=== PATIENT | female | born 1950 | race Caucasian/White ===

== ENCOUNTER → 2017-01-08 | Outpatient (CLI) | payer MEDICARE ==
[2017-01-08 08:12] LABS: EKG EKG PERFORMED
[2017-01-08 08:30] LABS: Basophils % (A) 1 %; CH 30.6; CHCM 32.6; Eosinophils # (A) 0.2 k/uL (0-0.7); Eosinophils % (A) 4 %; HCT 41.7 % (34.0-46.0); HDW 2.05; HGB 13.9 gm/dL (11.4-16.0); Luc % (Auto) 2; Lymphocytes # (A) 1.1 k/uL (1.0-4.8); Lymphocytes % (A) 19 %; MCH 31.4 pg (25.0-35.0); MCHC 33.4 g/dL (31.0-37.0); MCV 94.1 fL (80.0-100.0); Monocytes # (A) 0.4 k/uL (0-1.0); Monocytes % (A) 7 %; Neutrophils # (A) 3.9 k/uL (1.3-7.7); Neutrophils % (A) 69 %; RBC 4.43 m/uL (3.80-5.40); RDW 13.4 % (11.5-15.5); WBC 5.7 k/uL (3.8-10.6); WBC (Perox) 5.64
[2017-01-08 08:44] LABS: Anion Gap 10 mmol/L; Blood Urea Nitrogen 14 mg/dL (7-17); Carbon Dioxide 24 mmol/L (22-30); Chloride 106 mmol/L (98-107); Non-African American GFR(MDRD) >60 (>60 ml/min/1.73 sqM); Potassium 4.5 mmol/L (3.5-5.1); Sodium 140 mmol/L (137-145)
== END | disposition home or self-care (01) ==
LOC: LABWHC1 07:46
PROVIDERS: ATTEND Obstetrics & Gynecology
DX: Z01.810 Encounter for preprocedural cardiovascular examination (principal); I10 Essential (primary) hypertension; N81.4 Uterovaginal prolapse, unspecified; Z01.812 Encounter for preprocedural laboratory examination
CPT/HCPCS: 80051; 82565; 84520; 85025; 86850; 86870; 86880; 86900; 86901; 87086; 93005

== ENCOUNTER 2017-01-16 06:27 | Day surgery (SDC) | payer MEDICARE ==
[2017-01-08 11:41] VITALS: BMI 34.3
--- NOTE | 2017-01-15 13:00 | HP ---
This is a 66-year-old white female, 3, para 3, 0, 0, [address] Brannon for evaluation regarding an increasing perineal bulge. The patient states she has to splint the perineal body to thoroughly empty the bowels and empty the bladder. She is menopausal, not taking any hormone replacement therapy. She denies any postmenopausal bleeding. She states that this bulge has been present for many years, but has increased in size specifically over the past 6-12 months. After consultation, she is electing to proceed with vaginal hysterectomy and anterior repair. The patient, in addition, has urinary incontinence, I suspect an urge component but do believe that there is a stress component as well. REVIEW OF SYSTEMS: Otherwise negative. PAST MEDICAL HISTORY: Significant for hypertension and thyroid disease, followed by Dr. Brannon. PAST SURGICAL HISTORY: Tubal ligation in 1972, cholecystectomy 2005. CURRENT MEDICATIONS: Atorvastatin 20 mg pills once daily, Betimol 0.5% ophthalmologic drops into each eye twice daily, vitamin D12 orally daily, baby aspirin daily, fish oil 300 mg capsules orally daily, glucosamine chondroitin once daily, levothyroxine 75 mcg once daily, lisinopril 5 mg once daily, vitamin D capsules daily, multivitamin daily. ALLERGIES: TICLID to which she reports severe hives. FAMILY HISTORY: Significant for hypertension, thyroid disease, heart disease, diabetes and arthritis. REPRODUCTIVE HISTORY: Three normal spontaneous vaginal deliveries, one with a shoulder dystocia, all children alive and well. SOCIAL HISTORY: The patient drinks 2-3 cups of caffeinated coffee daily. She denies alcohol or drug use. She is a former smoker, having quit in 2005. 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 On exam this is a pleasant white female, 4 feet, 11 inches, 169 pounds, BMI 33.9 , blood pressure 120/80, vital signs otherwise stable and patient is afebrile. HEENT: Reveals no thyromegaly, no cervical lymphadenopathy, good range of motion. CARDIAC: Reveals regular rate and rhythm with no murmur, click or rub. CHEST: Clear to auscultation in all roland anteriorly and posteriorly. BREASTS: Bilaterally symmetric to inspection with no skin dimpling, nipple discharge, axillary adenopathy or discernible lesions or masses. GASTROINTESTINAL: Reveals no organosplenomegaly, no pain to deep palpation, no CVA tenderness. EXTREMITIES: Reveal no edema. There are good peripheral pulses and good range of motion. GENITOURINARY: There is a grade 4 cystocele noted, a grade 3 uterine prolapse as well. No obvious rectocele is noted. Adnexa are negative, smooth, small, nontender and mobile. RECTAL: Reveals good sphincter tone, no hemorrhoids, no rectal masses, FIT negative stool sample. IMPRESSION: Increasing grade 4 cystocele and grade 3 uterine prolapse, patient wishing cervical repair. PLAN: I discussed with the patient the option of pessary which she is declining. We have discussed the risks of surgery to include but not be exclusive of bleeding, infection, perforation or damage to the bladder, bowels, ureters or in deed any pelvic or abdominal organs. We have reviewed the risks of anesthesia to include aspiration, nerve damage or even . Second opinion is offered and declined. The ACOG pamphlet has been given to the patient which she has reviewed. All questions answered. TIRSO
[~2017-01-16 06:27] MED LIST: DEXAMETHASONE SOD PHOSPHATE 10 MG/ML 1 ML VIAL IV ONE; HYDROmorphone 1 MG/ML 1 ML SYRINGE IVP PRN; MIDAZOLAM 2 MG/2 ML VIAL IV PRN; ONDANSETRON 4 MG/2 ML VIAL IVP ONE; ceFAZolin 2 GM in SODIUM CHLORIDE 0.9% 100 ML IVPB ONE
[2017-01-16] MEDS: LACTATED RINGERS 1,000 ML IV SCH ×3 (07:09→22:03)
[2017-01-16] MEDS ORDERED: VASOPRESSIN 20 UNIT/ML 1 ML VIAL SQ ONE (08:09)
[2017-01-16] MEDS ORDERED: GLYCOPYRROLATE 0.2 MG/ML 2 ML VIAL ONE (08:12)
[2017-01-16] MEDS ORDERED: PHENYLEPHRINE-0.9% NACL SYG 1 MG/10 ML SYRINGE ONE (08:12)
[2017-01-16] MEDS ORDERED: MIDAZOLAM 2 MG/2 ML VIAL ONE (08:12)
[2017-01-16] MEDS ORDERED: PROPOFOL 10 MG/ML 20 ML VIAL IV ONE (08:12)
[2017-01-16] MEDS ORDERED: NALBUPHINE 10 MG/ML AMPUL IV PRN (08:26)
[2017-01-16] MEDS ORDERED: MORPHINE SULFATE 4 MG/ML SYRINGE IVP PRN (08:26)
[2017-01-16] MEDS ORDERED: KETOROLAC 30 MG/ML 1 ML VIAL IVP PRN (08:26)
[2017-01-16] MEDS ORDERED: diphenhydrAMINE 50 MG/ML 1 ML VIAL IVP PRN ×2 (08:26→09:13)
[2017-01-16] MEDS ORDERED: NALOXONE 0.4 MG/ML 1 ML VIAL IV PRN (08:26)
[2017-01-16] MEDS ORDERED: ONDANSETRON 4 MG/2 ML VIAL IVP PRN ×2 (08:26→09:13)
[2017-01-16] MEDS ORDERED: BACITRACIN 500 UNIT/GM OINT 28.4 GM TUBE TOPICAL ONE (08:47)
[2017-01-16] MEDS ORDERED: ZOLPIDEM 5 MG TAB PO PRN (09:13)
[2017-01-16] MEDS ORDERED: SIMETHICONE 80 MG CHEWABLE PO PRN (09:13)
[2017-01-16] MEDS ORDERED: Acetaminophen-Codeine 300-30mg TAB PO PRN (09:13)
--- NOTE | 2017-01-16 09:13 | P.OP ---
Date of Procedure: 01/16/17 Preoperative Diagnosis: Grade 4 cystocele, grade 3 uterine prolapse. Postoperative Diagnosis: Normal-appearing ovaries, small grade 1-2 rectocele Procedure(s) Performed: Vaginal hysterectomy, anterior colporrhaphy Implants: Anesthesia: MICKA Surgeon: Shaina Walker [employer] Specialist #1: Tarun Ansari Estimated Blood Loss (ml): 25 IV fluids (ml): 600 Urine output (ml): 250 Pathology: other (Cervix and uterus) Condition: stable Disposition: PACU Indications for Procedure: Operative Findings: Normal-appearing atrophic ovaries bilaterally Description of Procedure: Patient is brought to the operating suite and a spinal with Duramorph is placed. She is positioned in the dorsal lithotomy position. Antibiotics given. The appropriate timeout is performed to assure proper patient and procedural identification. The cervix, vagina, perineum and lower abdominal areas are all prepped and draped in usual sterile fashion. Weighted speculum was placed into the vagina. The latter strain for 250 mL of clear yellow urine. Anterior lip of the cervix is grasped with a double-tooth tenaculum. Cervix is injected circumferentially with dilute Pitressin solution. A [place] blade scalpel is used and an incision is made circumferentially with a V positioning posteriorly. A sponge rolled finger is used to sweep the mucosa away from the underlying fascial plane. Peritoneum is entered at 6:00, suture tied with 2-0 Vicryl held with a hemostat. The large billed speculum is then placed into the peritoneal cavity. The right uterosacral ligament complex is identified, clamped and held with a 0 Vicryl suture laterally. The same procedure is carried out contralaterally. At all times the mucosa is swept well from the operative field to avoid bladder and/or ureteral injury. Uterine vasculature is skeletonized, clamped cut and suture ligated. 2 additional pedicles are taken superior to the vessels bilaterally. The peritoneum was then entered at 12:00 with Metzenbaum scissors. Edgar clamps are used over the final pedicles and the cervix and uterus are removed and sent to pathology. Final pedicles are suture tied with 0 Vicryl, flashed, retied for excellent hemostasis. At this time a sponge stick is used and bilateral ovaries are inspected, they are noted to be atrophic , certainly within normal limits and therefore left in situ per the patient's wishes. The speculum is changed to the shallow billed speculum and the 2-0 Vicryl suture previously placed is brought around in a pursestring fashion to close the peritoneal cavity. 0 Vicryl suture is used to bring the vaginal mucosal edges together inferiorly. Allis clamps are used superiorly on the mucosal edges. The anterior vaginal mucosa is then injected with the same dilute Pitressin solution. Metzenbaum scissors are used to undermine the mucosa and it is opened and held laterally and a fanlike fashion with Allis clamps. Deal catheter is now placed in the urine is noted to be clear. 2-0 Vicryl sutures used in an interrupted fashion to bring the fascial edges together in the midline, thereby completely reducing the cystocele. Metzenbaum scissors are used to trim the redundant mucosa. 2-0 Vicryl sutures used in a running locking fashion to close the mucosa thereby completely obliterating the cystocele. Again urine is clear in the Deal tube. The vagina is packed with one-inch iodophor gauze with basic tracing. All sponge needle and enhancement counts are correct at the end of this procedure. Patient is brought back to recovery room in very good condition with stable vital signs including a blood pressure 100/64, pulse 66, 98% O2 saturation.
[2017-01-16] MEDS: KETOROLAC 30 MG/ML 1 ML VIAL IVP PRN (11:40)
[2017-01-16] MEDS: METOCLOPRAMIDE 5 MG/ML 2 ML VIAL IVP PRN ×2 (12:30→19:47)
[2017-01-17 04:58] VITALS: RESP 20
[2017-01-17] MEDS ORDERED: LEVOTHYROXINE 75 MCG TAB PO SCH (07:09)
--- NOTE | 2017-01-17 08:07 | P.DS ---
Providers Date of admission: 01/16/17 Expected date of discharge: 01/17/17 Attending physician: Shaina Walker Primary care physician: [facility] Hospital Course: This is a 66-year-old white female who presented with an increasing perineal bulge and pressure. After examination, she was noted to have a grade 4 cystocele and grade 3 uterine prolapse. She elected for surgical repair. Please see my dictated history and physical for details. Patient was admitted and underwent vaginal hysterectomy and anterior colporrhaphy under my care on 01/16/2017. She did well intraoperatively. Ovaries appeared normal and therefore were left in situ per her wishes. She received a spinal with Duramorph and has had good pain control. Please see my dictated operative note for details. This morning the patient is doing well. Deal catheter has been discontinued and vaginal pack is removed. She is tolerating clear liquids. She has no pain. There is no vaginal bleeding. There is no CVA tenderness. Extremities are negative. Chest is clear. Diet would be advanced to regular at lunch time. We will check a voided and post void residuals. If residuals are less than 100 patient will likely go home later this afternoon. She is judged to be in good condition for discharge home. Patient is reminded no intercourse, tampons or douching. She will use ibuprofen products [id number] as needed for pain, 200 mg pills, 3 every 6 hours as needed. I have asked her to call with any fevers shakes or chills, foul smelling or bloody vaginal drainage, with any pain not alleviated by ibuprofen, or indeed with any concerns. She is reminded no driving for 2 weeks , no heavy lifting, and certainly nothing per vagina. She will follow-up with me in the office in 2 weeks. Patient Condition at Discharge: Good Plan - Discharge Summary New Discharge Prescriptions: No Action Cyanocobalamin [Vitamin B-12] 500 mcg PO DAILY Cetirizine HCl [Zyrtec] 10 mg PO DAILY PRN PRN Reason: allergies Atorvastatin [Lipitor] 20 mg PO HS Aspirin 81 mg PO DAILY Timolol 0.5% Ophth Soln [Timoptic 0.5% Ophth Soln] 1 drop BOTH EYES BID Lisinopril [Zestril] 5 mg PO HS Levothyroxine Sodium [Synthroid] 75 mcg PO DAILY Glucosam/Allan-Msm1/C/Smith/Bosw [Glucosamine-Chondroitin Tablet] 1 each PO DAILY Cholecalciferol (Vitamin D3) [Vitamin D3] 2,000 - 4,000 unit PO DAILY Discharge Medication List Aspirin 81 mg PO DAILY 01/08/17 [History] Atorvastatin [Lipitor] 20 mg PO HS 01/08/17 [History] Cetirizine HCl [Zyrtec] 10 mg PO DAILY PRN 01/08/17 [History] Cholecalciferol (Vitamin D3) [Vitamin D3] 2,000 - 4,000 unit PO DAILY 01/08/17 [ History] Cyanocobalamin [Vitamin B-12] 500 mcg PO DAILY 01/08/17 [History] Glucosam/Allan-Msm1/C/Smith/Bosw [Glucosamine-Chondroitin Tablet] 1 each PO DAILY 01/08/17 [History] Levothyroxine Sodium [Synthroid] 75 mcg PO DAILY 01/08/17 [History] Lisinopril [Zestril] 5 mg PO HS 01/08/17 [History] Timolol 0.5% Ophth Soln [Timoptic 0.5% Ophth Soln] 1 drop BOTH EYES BID [History] Follow up Appointment(s)/Referral(s): Shaina Walker MD [STAFF PHYSICIAN] - 2 Weeks Discharge Disposition: HOME SELF-CARE
[2017-01-17] MEDS: KETOROLAC 30 MG/ML 1 ML VIAL IVP PRN (09:48)
[2017-01-17 09:52] VITALS: BP 106/70; PULSE 82; TEMP 97.4
--- NOTE | 2017-01-17 10:25 | P.PN ---
Progress Note - Text Postop day 1 from cystocele repair, with intrathecal morphine given for postop pain management. Patient is doing well. Pain is well controlled. On visual analog scale 0/10 Mild itching present No nausea or vomiting reported. No Headache or weakness and numbness in the legs. No complications from Duramorph.
[2017-01-17] MEDS ORDERED: IBUPROFEN 600 MG TAB PO PRN (12:09)
[2017-01-18] MEDS ORDERED: LEVOTHYROXINE 75 MCG TAB PO SCH (06:30)
== END 2017-01-17 14:19 | disposition home or self-care (01) ==
LOC: OR 06:27 → 6PED 09:07 → OR 01-17 14:19
PROVIDERS: ATTEND Obstetrics & Gynecology
DX: N81.3 Complete uterovaginal prolapse (principal); N81.11 Cystocele, midline; N39.46 Mixed incontinence; N80.0 Endometriosis of uterus; I10 Essential (primary) hypertension; E78.5 Hyperlipidemia, unspecified; H40.9 Unspecified glaucoma; Z79.82 Long term (current) use of aspirin; Z82.49 Family history of ischemic heart disease and other diseases of the circulatory system; Z87.891 Personal history of nicotine dependence; Z88.8 Allergy status to other drugs, medicaments and biological substances; Z79.899 Other long term (current) drug therapy
CPT/HCPCS: 94760; 88307; 58260; 57240; J2250; J1100; J2765; J0690; J2405; J1885 ×2; J2370; J2704; 86850; 86870; 86880; 86900; 86901

== ENCOUNTER 2018-02-09 17:35 | Emergency (ER) | payer MEDICARE ==
[2018-02-09 17:50] VITALS: BP 125/83; PULSE 79; RESP 18; TEMP 97.8
--- NOTE | 2018-02-09 18:05 | ED ---
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 She states she has some redness around the stitch site stitches of his stay in for 3 full weeks per patient. She was some redness around the wound but she' s had no fevers chills sweats no increased localized temperature. She has been using ice on it daily. No overt drainage or fluctuance noted. No other complaints he states she hasn't working and had a dressing over it while working. MD Complaint: wound re-check - Related Data Home Medications Medication Instructions Recorded Confirmed Aspirin 81 mg PO DAILY 01/08/17 02/09/18 Atorvastatin [Lipitor] 20 mg PO HS 01/08/17 02/09/18 Cetirizine HCl [Zyrtec] 10 mg PO DAILY PRN 01/08/17 02/09/18 Cholecalciferol (Vitamin D3) 2,000 - 4,000 unit PO DAILY 01/08/17 02/09/18 [Vitamin D3] Cyanocobalamin [Vitamin B-12] 500 mcg PO DAILY 01/08/17 02/09/18 Glucosam/Allan-Msm1/C/Smith/Bosw 1 each PO DAILY 01/08/17 02/09/18 [Glucosamine-Chondroitin Tablet] Timolol 0.5% Ophth Soln [Timoptic 1 drop BOTH EYES BID 01/08/17 02/09/18 0.5% Ophth Soln] Levothyroxine Sodium [Synthroid] 100 mcg PO DAILY 02/09/18 02/09/18 Lisinopril [Zestril] 10 mg PO DAILY 02/09/18 02/09/18 Previous Rx's Medication Instructions Recorded Amoxic-Pot Clav 875-125Mg 1 tab PO Q12HR #20 tablet 02/09/18 [Augmentin 875-125] Allergies Allergy/AdvReac Type Severity Reaction Status Date / Time ticlopidine [From Ticlid] Allergy Rash/Hives Verified 02/09/18 17:50 Review of Systems ROS Statement: Those systems with pertinent positive or pertinent negative responses have been documented in the HPI. ROS Other: All systems not noted in ROS Statement are negative. Past Medical History Additional Past Medical History / Comment(s): [place] cell carcinoma. History of Any Multi-Drug Resistant Organisms: None Reported Past Surgical History: Hysterectomy Additional Past Surgical History / Comment(s): removal of carcinoma Past Psychological History: No Psychological Hx Reported Smoking Status: Never smoker Past Alcohol Use History: None Reported Past Drug Use History: None Reported General Exam - General Exam Comments Initial Comments: This is a well-developed well-nourished awake alert oriented 3 female Limitations: no limitations General appearance: alert, in no apparent distress Head exam: Present: atraumatic, normocephalic, normal inspection Eye exam: Present: normal appearance, PERRL, EOMI. Absent: scleral icterus, conjunctival injection, periorbital swelling Neck exam: Present: normal inspection, full ROM Extremities exam: Present: full ROM, normal capillary refill, other ( Examination the right upper extremity demonstrates an approximately 10 some a long surgical incision with sutures in place. No evidence of wound dehiscence there is some localized erythema at the stitched sites consistent with a stitch reaction no fluctuance no increased localized temperature no drainage. No sensorimotor vascular deficits. No epitrochlear lymphadenopathy. No axillary lymphadenopathy.). Absent: tenderness Neurological exam: Present: alert, oriented X3, CN II-XII intact Psychiatric exam: Present: normal affect, normal mood Skin exam: Present: warm, dry, other (As noted above) Course Vital Signs 02/09/18 17:47 Temperature 97.8 F Pulse Rate 79 Respiratory 18 Rate Blood Pressure 125/83 O2 Sat by Pulse 99 Oximetry Medical Decision Making - Medical Decision Making At this time there is no evidence of secondary wound infection. There is localized erythema near the site which is more consistent with tissue reaction to the sutures. Patient will be discharged she is instructed to elevate her right upper extremity at this time I do not feel further cold compress will be beneficial. Patient will be given a prescription to be used if she should've started developing fevers chills sweats increased localized redness and increased localized tissue temperature more consistent with infection. Patient is in agreement with this Disposition Clinical Impression: Encounter for wound re-check Disposition: HOME SELF-CARE Condition: Good Instructions: Care For Your Stitches (ED) Prescriptions: Amoxic-Pot Clav 875-125Mg [Augmentin 875-125] 1 tab PO Q12HR #20 tablet Is patient prescribed a controlled substance at d/c from ED?: No Referrals: Yaya Brannon MD [Primary Care Provider] - 1-2 days
== END 2018-02-09 18:20 | disposition home or self-care (01) ==
LOC: EC 17:35
DX: Z48.01 Encounter for change or removal of surgical wound dressing (principal); M79.631 Pain in right forearm; Z79.82 Long term (current) use of aspirin; Z79.899 Other long term (current) drug therapy; Z85.821 Personal history of Merkel cell carcinoma; Z98.890 Other specified postprocedural states
CPT/HCPCS: 99283

== ENCOUNTER → 2018-04-24 | Outpatient (CLI) | payer MEDICARE ==
--- NOTE | 2018-04-25 10:21 | MM ---
Reason for exam: screening (asymptomatic). Last mammogram was performed 4 years and 5 months ago. History: Patient is postmenopausal and history of other cancer. Physical Findings: A clinical breast exam by your physician is recommended on an annual basis and results should be correlated with mammographic findings. MG 3D Screening Mammo W/Cad Bilateral CC and MLO view(s) were taken. Prior study comparison: November 18, 2013, mammogram. November 05, 2013, mammogram. The breast tissue is heterogeneously dense. This may lower the sensitivity of mammography. There are benign appearing vascular calcifications bilaterally. There is chronic nodularity bilaterally at axilla. There is no discrete abnormality. ASSESSMENT: Benign, BI-RAD 2 RECOMMENDATION: Routine screening mammogram of both breasts in 1 year.
== END | disposition home or self-care (01) ==
LOC: RADMAMWWP 10:56
PROVIDERS: ATTEND Family Medicine
DX: Z12.31 Encounter for screening mammogram for malignant neoplasm of breast (principal)
CPT/HCPCS: 77063; 77067

== ENCOUNTER → 2019-12-24 | Outpatient (CLI) | payer MEDICARE ==
[2019-12-24 15:36] LABS: African American GFR (CKD) >90 (>60 ml/min/1.73 sqM); Blood Urea Nitrogen 17 mg/dL (7-17); Non-African American GFR(CKD) >90 (>60 ml/min/1.73 sqM)
--- NOTE | 2019-12-24 16:58 | CT ---
EXAMINATION TYPE: CT abdomen pelvis w con DATE OF EXAM: 12/24/2019 COMPARISON: None HISTORY: Abdominal pain. CT DLP: 1011.2 mGycm Automated exposure control for dose reduction was used. CONTRAST: Performed with IV Contrast, patient injected with 100 mL of Isovue M300. Lung bases are clear. There is no pleural effusion. Heart size is normal. There is no pericardial eff usion. There is small hiatal hernia. The remainder of the stomach appears normal. There are clips fro m cholecystectomy. Liver shows no focal defect. Bile ducts are not dilated. Spleen is intact. There i s no evidence of pancreatic mass. There is no adrenal mass. Kidneys show satisfactory contrast opacification. There is no hydronephrosi s. There is 4 mm calculus in the lateral left kidney. The ureters are not dilated. There is no retrop eritoneal adenopathy. Bladder distends smoothly. There is no inguinal hernia. There is wall thickening and fat stranding around the mid sigmoid colon. There are numerous sigmoid d iverticula. There are numerous diverticula in the descending colon. Appendix is posterior and appears normal. There is no evidence of a bowel obstruction. There is no free air. There is no ascites. Lumbar verteb ra have normal alignment. There is slight depression of the superior endplate of L5 with a Schmorl no de. There is anterior wedging of 35% of the T12 vertebra. Fractures probably old. IMPRESSION: There is inflammatory changes in the mid sigmoid colon with wall thickening and mild fat stranding co nsistent with acute diverticulitis. No drainable fluid collection. Nonobstructing left renal calculus. Extensive colonic diverticulosis. Normal appendix.
== END | disposition home or self-care (01) ==
LOC: RADCTMAIN 14:35
PROVIDERS: ATTEND Family Medicine
DX: K63.89 Other specified diseases of intestine (principal); K51.40 Inflammatory polyps of colon without complications; N20.0 Calculus of kidney; K57.30 Diverticulosis of large intestine without perforation or abscess without bleeding
CPT/HCPCS: 82565; 84520; 74177; 36415; Q9967 ×2

== ENCOUNTER → 2021-03-18 | Outpatient (CLI) | payer MEDICARE ==
--- NOTE | 2021-03-22 10:12 | MM ---
Reason for exam: screening (asymptomatic). Last mammogram was performed 2 years and 11 months ago. History: Patient is postmenopausal and history of other cancer. Physical Findings: A clinical breast exam by your physician is recommended on an annual basis and results should be correlated with mammographic findings. MG 3D Screening Mammo W/Cad Bilateral CC and MLO view(s) were taken. Prior study comparison: April 24, 2018, bilateral MG 3d screening mammo w/cad. November 18, 2013, mammogram. November 05, 2013, mammogram. The breast tissue is heterogeneously dense. This may lower the sensitivity of mammography. No significant changes when compared with prior studies. ASSESSMENT: Benign, BI-RAD 2 RECOMMENDATION: Routine screening mammogram of both breasts in 1 year.
== END | disposition home or self-care (01) ==
LOC: RADMAMWWP 13:32
PROVIDERS: ATTEND Family Medicine
DX: Z12.31 Encounter for screening mammogram for malignant neoplasm of breast (principal); Z85.89 Personal history of malignant neoplasm of other organs and systems
CPT/HCPCS: 77063; 77067

== ENCOUNTER 2021-05-12 08:53 | Emergency (ER) | payer MEDICARE ==
[2021-05-12 09:16] VITALS: TEMP 98.8
[2021-05-12] MEDS ORDERED: SODIUM CHLORIDE 0.9% 50 ML IVPB ONE (09:45)
[2021-05-12] MEDS ORDERED: CASIRIVIMAB (REGN10933) (EUA) 600 MG, IMDEVIMAB (REGN10987) (EUA) 600 MG in SODIUM CHLO... IVPB ONE (09:45)
--- NOTE | 2021-05-12 10:15 | ED ---
General Adult HPI - General Chief complaint: Upper Respiratory Infection Stated complaint: covid+, wants infusion Time Seen by Provider: 05/12/21 08:58 Source: patient, RN notes reviewed Mode of arrival: ambulatory Limitations: no limitations - History of Present Illness Initial comments: 70-year-old female presents emergency Department with chief complaint of COVID- 19 positive. Patient tested positive has results in hand yesterday. Patient states that she's had sinus congestion minimal cough no shortness breath no chest pain no fevers chills no significant body aches no other complaints. - Related Data Home Medications Medication Instructions Recorded Confirmed Aspirin 81 mg PO HS 01/08/17 02/09/18 Atorvastatin [Lipitor] 20 mg PO HS 01/08/17 02/09/18 Cetirizine HCl [Zyrtec] 10 mg PO DAILY PRN 01/08/17 02/09/18 Cholecalciferol (Vitamin D3) 2,000 - 4,000 unit PO DAILY 01/08/17 02/09/18 [Vitamin D3] Cyanocobalamin [Vitamin B-12] 500 mcg PO DAILY 01/08/17 02/09/18 Glucosam/Allan-Msm1/C/Smith/Bosw 1 tab PO DAILY 01/08/17 02/09/18 [Glucosamine-Chondroitin Tablet] Timolol 0.5% Ophth Soln [Timoptic 1 drop BOTH EYES BID 01/08/17 02/09/18 0.5% Ophth Soln] Levothyroxine Sodium [Synthroid] 100 mcg PO DAILY 02/09/18 02/09/18 lisinopriL [Zestril] 10 mg PO DAILY 02/09/18 02/09/18 Previous Rx's Medication Instructions Recorded Amoxic-Pot Clav 875-125Mg 1 tab PO Q12HR #20 tablet 02/09/18 [Augmentin 875-125] Allergies Allergy/AdvReac Type Severity Reaction Status Date / Time ticlopidine [From Ticlid] Allergy Rash/Hives Verified 05/12/21 09:16 Review of Systems ROS Statement: Those systems with pertinent positive or pertinent negative responses have been documented in the HPI. ROS Other: All systems not noted in ROS Statement are negative. Past Medical History Additional Past Medical History / Comment(s): [place] cell carcinoma. History of Any Multi-Drug Resistant Organisms: None Reported Past Surgical History: Hysterectomy Additional Past Surgical History / Comment(s): removal of carcinoma Past Psychological History: No Psychological Hx Reported Smoking Status: Former smoker Past Alcohol Use History: None Reported Past Drug Use History: None Reported General Exam Limitations: no limitations General appearance: alert, in no apparent distress Head exam: Present: atraumatic, normocephalic, normal inspection Eye exam: Present: normal appearance, PERRL, EOMI. Absent: scleral icterus, conjunctival injection, periorbital swelling ENT exam: Present: normal exam, normal oropharynx, mucous membranes moist Neck exam: Present: normal inspection, full ROM. Absent: tenderness, meningismus, lymphadenopathy Respiratory exam: Present: normal lung sounds bilaterally. Absent: respiratory distress, wheezes, rales, rhonchi, stridor Cardiovascular Exam: Present: regular rate, normal rhythm, normal heart sounds. Absent: systolic murmur, diastolic murmur, rubs, gallop, clicks Course Vital Signs 05/12/21 09:13 Temperature 98.8 F Pulse Rate 96 Respiratory 22 Rate Blood Pressure 158/111 O2 Sat by Pulse 94 L Oximetry Medical Decision Making - Medical Decision Making Patient's: Positive did receive monoclonal antibodies be discharged stable condition. Disposition Clinical Impression: COVID-19 Disposition: HOME SELF-CARE Condition: Stable Instructions (If sedation given, give patient instructions): Coronavirus Disease 2019 (COVID-19) Additional Instructions: Please return to the Emergency Department if symptoms worsen or any other concerns. Is patient prescribed a controlled substance at d/c from ED?: No Referrals: Yaya Brannon MD [Primary Care Provider] - 1-2 days Time of Disposition: 10:14
[2021-05-12 10:39] VITALS: RESP 16
[2021-05-12 10:47] VITALS: BP 150/82; PULSE 88
== END 2021-05-12 11:09 | disposition home or self-care (01) ==
LOC: EC 08:53
DX: U07.1 COVID-19 (principal); Z87.891 Personal history of nicotine dependence; Z79.890 Hormone replacement therapy; Z79.82 Long term (current) use of aspirin; Z79.899 Other long term (current) drug therapy
CPT/HCPCS: 99283; Q0243

== ENCOUNTER → 2021-08-15 | Outpatient (CLI) | payer MEDICARE ==
[2021-08-15 18:30] LABS: ALT 24 U/L (8-44); AST 26 U/L (13-35); African American GFR (CKD) 106.3 (60.0-200.0); Albumin 4.7 g/dL (3.8-4.9); Albumin/Globulin Ratio 1.47 (1.60-3.17); Alkaline Phosphatase 93 U/L (41-126); Blood Urea Nitrogen 13.2 mg/dL (9.0-27.0); Calcium 9.6 mg/dL (8.7-10.3); Carbon Dioxide 24.3 mmol/L (20.0-27.5); Chloride 102 mmol/L (96-109); Chol/HDL Ratio 2.51 Ratio; Globulin 3.2 g/dL (1.6-3.3); Glucose 86 mg/dL (70-110); LDL Cholesterol,Calculated 65.8 mg/dL (0.0-131.0); Non-African American GFR(CKD) 91.7 (60.0-200.0); Potassium 4.4 mmol/L (3.5-5.5); Sodium 137 mmol/L (135-145); Total Protein 7.9 g/dL (6.2-8.2)
== END | disposition home or self-care (01) ==
LOC: LABWHC1 09:41
PROVIDERS: ATTEND Internal Medicine Interventional Cardiology
DX: E78.2 Mixed hyperlipidemia (principal)
CPT/HCPCS: 36415; 80053; 80061

== ENCOUNTER → 2021-08-25 | Outpatient (CLI) | payer MEDICARE ==
--- NOTE | 2021-08-25 13:27 | US ---
EXAMINATION TYPE: US venous doppler duplex LE LT DATE OF EXAM: 08/25/2021 1:03 PM COMPARISON: NONE CLINICAL HISTORY: R22.42 SWELLING, MASS AND LUMPLT LOWER EXT. SIDE PERFORMED: Left TECHNIQUE: The lower extremity deep venous system is examined utilizing real time linear array sonog kathleen with graded compression, doppler sonography and color-flow sonography. VESSELS IMAGED: Common Femoral Vein Deep Femoral Vein Greater Saphenous Vein * Femoral Vein Popliteal Vein Small Saphenous Vein * Proximal Calf Veins (* superficial vessels) Left Leg: Negative for DVT. At patient's area of concern at lateral left ankle tissue swelling; US f indings showed increased soft tissue thickness compared to right ankle. IMPRESSION: 1. No diagnostic evidence of DVT. 2. Soft tissue thickening is nonspecific over the area of palpable abnormality. Correlate clinically. If warranted MRI could be obtained.
== END | disposition home or self-care (01) ==
LOC: RADUSWWP 12:39
PROVIDERS: ATTEND Family Medicine
DX: R22.42 Localized swelling, mass and lump, left lower limb (principal)

== ENCOUNTER → 2021-08-25 | Outpatient (CLI) | payer MEDICARE ==
--- NOTE | 2021-08-25 13:43 | XR ---
EXAMINATION TYPE: XR chest 2V DATE OF EXAM: 08/25/2021 COMPARISON: NONE HISTORY: R06.02, shortness of breath TECHNIQUE: Frontal and lateral views of the chest are obtained. FINDINGS: There is no focal air space opacity, pleural effusion, or pneumothorax seen. The cardiac silhouette size is within normal limits. There are prominent lung volumes with flattening the hemidia phragms suggesting underlying COPD present within the upper abdomen. Aorta is dense. The osseous str uctures are intact, bone mineralization is reduced. IMPRESSION: No acute cardiopulmonary process.
== END | disposition home or self-care (01) ==
LOC: RADXRMAIN 13:11
PROVIDERS: ATTEND Family Medicine
DX: R06.02 Shortness of breath (principal)
CPT/HCPCS: 71046

== ENCOUNTER 2021-10-08 20:36 | Emergency (ER) | payer MEDICARE ==
[2021-10-08 21:08] VITALS: RESP 18; TEMP 98
--- NOTE | 2021-10-08 21:44 | ED ---
Recheck HPI - General Chief Complaint: Recheck/Abnormal Lab/Rx Stated Complaint: May have ingested hand planning consultant Time Seen by Provider: 10/08/21 21:38 Source: patient, RN notes reviewed Mode of arrival: ambulatory Limitations: no limitations - History of Present Illness Initial Comments: This is a pleasant 71-year-old female who states she inadvertently got some hand planning consultant on the lid of her cup from [employer]. Patient then accidentally got some of the hand planning consultant in her mouth. Patient was very concerned about this. Patient comes to the ER stating that she immediately noticed that the beverage tasted different. Patient denies any shortness of breath. She denies any cough. Denies any fever or chills. Patient denies any other ingestions. She states this was purely accidental. Patient indicating this is a very small amount of hand planning consultant which she had just used on her hands prior to touching the cup. No headache, no fever or chills, no changes in vision or hearing, no sore throat or difficulty with speech, no neck pain, no chest pain or shortness of breath, no abdominal pain, no nausea or vomiting, no changes in urination or bowel movements, no numbness or tingling, no extremity pain, no skin rashes or lesions. - Related Data Home Medications Medication Instructions Recorded Confirmed Atorvastatin [Lipitor] 20 mg PO HS 01/08/17 05/12/21 Levothyroxine Sodium [Synthroid] 100 mcg PO DAILY 02/09/18 05/12/21 lisinopriL [Zestril] 10 mg PO DAILY 02/09/18 05/12/21 Dorzolamide-Timol 2.23%/0.68% 1 drop BOTH EYES BID 05/12/21 05/12/21 [Cosopt] Allergies Allergy/AdvReac Type Severity Reaction Status Date / Time ticlopidine [From Ticlid] Allergy Rash/Hives Verified 10/08/21 21:08 Review of Systems ROS Statement: Those systems with pertinent positive or pertinent negative responses have been documented in the HPI. ROS Other: All systems not noted in ROS Statement are negative. 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 History of Any Multi-Drug Resistant Organisms: None Reported Past Surgical History: Hysterectomy Additional Past Surgical History / Comment(s): removal of carcinoma Past Psychological History: No Psychological Hx Reported Smoking Status: Former smoker Past Alcohol Use History: None Reported Past Drug Use History: None Reported General Exam Limitations: no limitations General appearance: alert, in no apparent distress Head exam: Present: atraumatic, normocephalic, normal inspection Eye exam: Present: normal appearance, PERRL, EOMI. Absent: scleral icterus, conjunctival injection, periorbital swelling ENT exam: Present: normal exam, mucous membranes moist Neck exam: Present: normal inspection. Absent: tenderness, meningismus, lymphadenopathy Respiratory exam: Present: normal lung sounds bilaterally. Absent: respiratory distress, wheezes, rales, rhonchi, stridor Cardiovascular Exam: Present: regular rate, normal rhythm, normal heart sounds. Absent: systolic murmur, diastolic murmur, rubs, gallop, clicks GI/Abdominal exam: Present: soft, normal bowel sounds. Absent: distended, tenderness, guarding, rebound, rigid Extremities exam: Present: normal inspection, full ROM, normal capillary refill. Absent: tenderness, pedal edema, joint swelling, calf tenderness Back exam: Present: normal inspection Neurological exam: Present: alert, oriented X3, CN II-XII intact Psychiatric exam: Present: normal affect, normal mood Skin exam: Present: warm, dry, intact, normal color. Absent: rash Course Vital Signs 10/08/21 21:05 Temperature 98 F Pulse Rate 86 Respiratory 18 Rate Blood Pressure 160/106 O2 Sat by Pulse 97 Oximetry Medical Decision Making - Medical Decision Making Patient presented to the emergency department after possibly ingesting a tiny amount of hand planning consultant which was on the lid of a beverage cup after she had used it on her hands. Minimal elevation of her blood pressure. Patient appeared to be a bit anxious but healthy otherwise. No adventitious lung sounds. No vomiting. Patient was reassured and was much appreciated. Patient was told to return to the ER for any signs or symptoms worsen. Told to return immediately if any other problems arise. All questions answered. Treatment plan discussed. Patient in agreement Every effort has been made to ensure accuracy of this dictation. However, due to the limitations of electronic medical records and dictation devices, errors in charting still occur. Given the nature of the exposure and the relatively tiny amount of hand planning consultant involved which may have only touched the patient's lips. I don't believe that any diagnostics are indicated at this time. Patient concurs with this. Disposition Clinical Impression: Accidental ingestion of substance, Anxiety, Elevated blood pressure reading Disposition: HOME SELF-CARE Condition: Stable Instructions (If sedation given, give patient instructions): Anxiety (ED) Additional Instructions: Follow-up with your regular physician as directed. Return to the ER immediately if any symptoms worsen, new symptoms arise, or any other problems develop. Make a follow-up with your regular doctor to recheck your blood pressure. Is patient prescribed a controlled substance at d/c from ED?: No Referrals: Marshall Cedeño DO [Primary Care Provider] - 1-2 days Time of Disposition: 21:44
[2021-10-08 22:00] VITALS: BP 156/97; PULSE 74
== END 2021-10-08 22:00 | disposition home or self-care (01) ==
LOC: EC 20:36
DX: T51.0X1A Toxic effect of ethanol, accidental (unintentional), initial encounter (principal); F41.9 Anxiety disorder, unspecified; R03.0 Elevated blood-pressure reading, without diagnosis of hypertension; Z87.891 Personal history of nicotine dependence; Z79.899 Other long term (current) drug therapy
CPT/HCPCS: 99283

== ENCOUNTER → 2021-10-24 | Outpatient (CLI) | payer MEDICARE ==
--- NOTE | 2021-10-25 02:21 | MR ---
EXAMINATION TYPE: MR ankle LT wo con DATE OF EXAM: 10/24/2021 COMPARISON: None HISTORY: Capsulitis L ankle, swelling x 2 years Multiplanar multiecho imaging of the left ankle without contrast. The ankle mortise is anatomic. There is some patchy edema in the body of the calcaneus. There is also edema in the inferior talus adjacent to the subtalar joint. No fracture line seen. There is mild ank le joint effusion. The collateral ligaments are intact. The medial and lateral flexor tendons of the ankle appear intact. Achilles tendon is intact. Plantar fascia is intact. There is some mild subcutan eous edema over the medial malleolus. There is 1 cm degenerative cyst formation in the superior body of the calcaneus adjacent to the subtalar joint. IMPRESSION: No evidence of ligament or tendon tear. Bone edema seen in the talus and calcaneus consistent with brandon ne bruise and arthritic changes.
== END | disposition home or self-care (01) ==
LOC: RADMRIMAIN 10:36
PROVIDERS: ATTEND Student in an Organized Health Care Education/Training Program
DX: M19.072 Primary osteoarthritis, left ankle and foot (principal); R60.0 Localized edema

== ENCOUNTER → 2021-11-22 | Outpatient (CLI) | payer MEDICARE ==
[2021-11-22 15:22] LABS: African American GFR (CKD) 104.2 (60.0-200.0); Albumin 4.4 g/dL (3.8-4.9); Albumin/Globulin Ratio 1.66 (1.60-3.17); BUN/Creat Ratio 25.04 Ratio (12.00-20.00); Blood Urea Nitrogen 15.6 mg/dL (9.0-27.0); Calcium 9.3 mg/dL (8.7-10.3); Carbon Dioxide 26.5 mmol/L (20.0-27.5); Globulin 2.6 g/dL (1.6-3.3); Non-African American GFR(CKD) 89.9 (60.0-200.0); Potassium 4.5 mmol/L (3.5-5.5); Total Bilirubin 0.3 mg/dL (0.30-1.20)
== END | disposition home or self-care (01) ==
LOC: LABWHC1 09:11
PROVIDERS: ATTEND Internal Medicine Endocrinology, Diabetes & Metabolism
DX: E11.65 Type 2 diabetes mellitus with hyperglycemia (principal); E03.8 Other specified hypothyroidism
CPT/HCPCS: 36415; 80053; 83036; 84443

== ENCOUNTER → 2022-03-21 | Outpatient (CLI) | payer MEDICARE ==
[2022-03-21 10:56] LABS: ALT 19 U/L (8-44); AST 22 U/L (13-35); Chol/HDL Ratio 2.58 Ratio; LDL Cholesterol,Calculated 84.6 mg/dL (0.0-131.0); VLDL Calculation 12.12 mg/dL (5.00-40.00)
== END | disposition home or self-care (01) ==
LOC: LABWHC1 07:28
PROVIDERS: ATTEND Internal Medicine Interventional Cardiology
DX: E78.2 Mixed hyperlipidemia (principal)
CPT/HCPCS: 36415; 80061; 84450; 84460

== ENCOUNTER → 2022-05-09 | Outpatient (CLI) | payer MEDICARE | END | disposition home or self-care (01) | LOC: LABWHC1 08:11 | PROVIDERS: ATTEND Internal Medicine Endocrinology, Diabetes & Metabolism | DX: E03.8 Other specified hypothyroidism (principal) | CPT/HCPCS: 36415; 84443 ==

== ENCOUNTER → 2022-12-07 | Outpatient (CLI) | payer MEDICARE ==
--- NOTE | 2022-12-07 20:00 | BD ---
EXAMINATION TYPE: Axial Bone Density DATE OF EXAM: 12/07/2022 CLINICAL HISTORY: 72 years old Female. ICD-10 CODE: M810 AGE RELATED OSTEO Height: 58.25" Weight: 158.8 lbs FRAX RISK QUESTIONS: Alcohol (3 or more units per day): No Family History (Parent hip fracture): No Glucocorticoids (More than 3mos): No (Ex: prednisone, prednisolone, methylprednisolone, dexamethasone, and hydrocortisone). History of Fracture in Adulthood: No Secondary Osteoporosis: 1. Type 1 Diabetes: No 2. Hyperthyroidism: No 3. Menopause before 45: No 4. Malnutrition: No 5. Chronic liver disease: No Rheumatoid Arthritis: Yes Current Tobacco Use: No RISK FACTORS HISTORY OF: Hip Fracture (Right/Left): No Spine Fracture: No History of Wrist Fracture: No Surgery to Spine/Hip(right/left)/Wrist (right/left): No Family History of Osteoporosis: No Active: Yes Diet low in dairy products/other sources of calcium: No Postmenopausal woman: Yes Lost more than 2 inches in height since high school: No Frequent falls: No Poor Health: No Hyperparathyroidism: No Adrenal Insufficiency: No MEDICATIONS: Prednisone or other steroids: No Thyroid Medications: Yes Which medication: Synthroid How Lon years Osteoporosis Medications: No Additional Medications: Glucosamine, Lisinopril, Synthroid, Eye drops for glaucoma, vit D3, vit B12, CoQ10 Additional History: None EXAM MEASUREMENTS: Bone mineral densitometry was performed using the [employer] System. Bone mineral density as measured about the Lumbar spine is: ----- L1-L4(G/cm2): 0.795 T Score Values are as follows: ----- L1: -3.9 ----- L2: -3.8 ----- L3: -3.7 ----- L4: -2.8 ----- L1-L4: -3.5 Z Score Values are as follows: ----- L1: -2.4 ----- L2: -2.3 ----- L3: -2.2 ----- L4: -1.3 ----- L1-L4: -2.0 Baseline Bone mineral density about the R hip (g/cm2): 0.647 Bone mineral density about the L hip (g/cm2): 0.621 T Score values are as follows: -----R Neck: -2.7 -----L Neck: -3.0 -----R Total: -2.9 -----L Total: -3.1 Z Score values are as follows: -----R Neck: -1.0 -----L Neck: -1.3 -----R Total: -1.4 -----L Total: -1.6 Baseline FRAX%s: The graph provided illustrates a 19.2% chance for a major osteoporotic fx and a 6.8% chance f or the hips probability for fx in 10 years time. IMPRESSION: Osteoporosis (T Score less than -2.5). There is increased fracture risk and therapy is usually indicated based on age. Re-Screen 1-2 years. NOTE: T-SCORE=SD OF THE YOUNG ADULT MEAN.
--- NOTE | 2022-12-08 08:33 | MM ---
Reason for Exam: Screening (asymptomatic). Last mammogram was performed 1 year(s) and 8 month(s) ago. Patient History: Menarche at age 15. First Full-Term at age 19. Hysterectomy at age 66. Postmenopausal. Other cancer. Risk Values: Betzaida 5 year model risk: 1.4%. NCI Lifetime model risk: 3.6%. Prior Study Comparison: 11/18/2013 Screening Mammogram, Unknown. 04/24/2018 Bilateral Screening Mammogram, [facility]. 03/18/2021 Bilateral Screening Mammogram, [facility]. Tissue Density: The breast tissue is heterogeneously dense. This may lower the sensitivity of mammography. Findings: Analyzed By CAD. There is no suspicious group of microcalcifications or new suspicious mass in either breast. Overall Assessment: Benign, BI-RAD 2 Management: Screening Mammogram of both breasts in 1 year. . Patient should continue monthly self-breast exams. A clinical breast exam by your physician is recommended on an annual basis. This exam should not preclude additional follow-up of suspicious palpable abnormalities. Note on Betzaida scores and lifetime risk: 1. A Betzaida score greater than 3% is considered moderate risk. If this is the case, consider specialist referral to assess eligibility for a risk reducing agent. 2. If overall lifetime risk for the development of breast cancer is 20% or higher, the patient may qualify for future screening with alternating mammogram and breast MRI. Electronically signed and approved by: Joseph Mendoza M.D. Radiologis
== END | disposition home or self-care (01) ==
LOC: RADMAMWWP 10:07
PROVIDERS: ATTEND Family Medicine
DX: Z12.31 Encounter for screening mammogram for malignant neoplasm of breast (principal); M81.0 Age-related osteoporosis without current pathological fracture; M85.89 Other specified disorders of bone density and structure, multiple sites; Z78.0 Asymptomatic menopausal state
CPT/HCPCS: 77063; 77067; 77080

== ENCOUNTER → 2022-12-26 | Outpatient (CLI) | payer MEDICARE | END | disposition home or self-care (01) | LOC: LABWHC1 07:51 | PROVIDERS: ATTEND Internal Medicine Endocrinology, Diabetes & Metabolism | DX: E03.8 Other specified hypothyroidism (principal) | CPT/HCPCS: 36415; 84443 ==

== ENCOUNTER → 2023-02-27 | Outpatient (CLI) | payer MEDICARE ==
[~2023-02-27] MED LIST changes: +DENOSUMAB 60 MG/ML 1 ML SYRINGE SQ NR; -DEXAMETHASONE SOD PHOSPHATE 10 MG/ML 1 ML VIAL IV ONE; -HYDROmorphone 1 MG/ML 1 ML SYRINGE IVP PRN; -MIDAZOLAM 2 MG/2 ML VIAL IV PRN; -ONDANSETRON 4 MG/2 ML VIAL IVP ONE; -ceFAZolin 2 GM in SODIUM CHLORIDE 0.9% 100 ML IVPB ONE
[2023-02-27 13:40] VITALS: PULSE 79; RESP 16; TEMP 97.9
[2023-02-27 13:50] VITALS: BP 109/75
== END ==
LOC: PROCWHC3 13:30
PROVIDERS: ATTEND Family Medicine
DX: M81.0 Age-related osteoporosis without current pathological fracture (principal)
CPT/HCPCS: 96372; J0897

== ENCOUNTER → 2023-08-28 | Outpatient (CLI) | payer MEDICARE | END | disposition home or self-care (01) | LOC: LABWHC1 11:36 | PROVIDERS: ATTEND Internal Medicine Endocrinology, Diabetes & Metabolism | DX: E03.8 Other specified hypothyroidism (principal); R73.03 Prediabetes | CPT/HCPCS: 36415; 83036; 84443 ==

== ENCOUNTER → 2023-09-04 | Outpatient (CLI) | payer MEDICARE ==
[2023-09-04] MEDS: DENOSUMAB 60 MG/ML 1 ML SYRINGE SQ NR (13:37)
[2023-09-04 13:42] VITALS: BP 120/77; PULSE 67; RESP 16; TEMP 97
== END ==
LOC: PROCWHC3 13:11
PROVIDERS: ATTEND Family Medicine
DX: M81.0 Age-related osteoporosis without current pathological fracture (principal)
CPT/HCPCS: 96372; J0897

== ENCOUNTER → 2023-10-23 | Outpatient (CLI) | payer MEDICARE ==
[2023-10-23 15:23] LABS: ALT 18 U/L (8-44); AST 27 U/L (13-35); Chol/HDL Ratio 2.33 Ratio; LDL Cholesterol,Calculated 66.1 mg/dL (0.0-131.0)
== END | disposition home or self-care (01) ==
LOC: LABWHC1 10:23
PROVIDERS: ATTEND Internal Medicine Interventional Cardiology
DX: E78.2 Mixed hyperlipidemia (principal)
CPT/HCPCS: 36415; 80061; 84450; 84460

== ENCOUNTER → 2023-12-27 | Outpatient (CLI) | payer MEDICARE ==
--- NOTE | 2024-01-01 17:21 | MM ---
Reason for Exam: Screening (asymptomatic). Last mammogram was performed 1 year(s) and 1 month(s) ago. Patient History: Menarche at age 15. First Full-Term at age 19. Hysterectomy at age 66. Postmenopausal. Other cancer. Risk Values: Betzaida 5 year model risk: 1.4%. NCI Lifetime model risk: 3.3%. Prior Study Comparison: 04/24/2018 Bilateral Screening Mammogram, [facility]. 03/18/2021 Bilateral Screening Mammogram, [facility]. 12/07/2022 Bilateral MG 3D screening mammo w/cad, [facility]. Tissue Density: The breasts are heterogeneously dense, which may obscure small masses. Findings: Analyzed By CAD. The pattern is symmetrical. No significant interval change is evident. Vascular calcifications present.. Stable nodularity right breast. Benign spherical calcifications present bilaterally. No suspicious groups of microcalcifications, spiculated or lobular masses, architectural distortion or other secondary signs of malignancy are mammographically apparent. Overall Assessment: Benign, BI-RAD 2 Management: Screening Mammogram of both breasts in 1 year. A negative mammogram report should not preclude additional follow up of suspicious palpable abnormalities. Patient should continue monthly self breast exam. A clinical breast exam by your physician is recommended on an annual basis and results should be correlated with mammographic findings. Note on Betzaida scores and lifetime risk: 1. A Betzaida score greater than 3% is considered moderate risk. If this is the case, consider specialist referral to assess eligibility for a risk reducing agent. 2. If overall lifetime risk for the development of breast cancer is 20% or higher, the patient may qualify for future screening with alternating mammogram and breast MRI. Electronically signed and approved by: Prasad Lal D.O. Radiologis
== END | disposition home or self-care (01) ==
LOC: RADMAMWWP 12:15
PROVIDERS: ATTEND Family Medicine
DX: Z12.31 Encounter for screening mammogram for malignant neoplasm of breast (principal); Z78.0 Asymptomatic menopausal state
CPT/HCPCS: 77063; 77067

== ENCOUNTER → 2024-03-27 | Outpatient (CLI) | payer MEDICARE ==
[2024-03-27 14:17] VITALS: BP 110/73; PULSE 93; RESP 18; TEMP 97.6
[2024-03-27] MEDS: DENOSUMAB 60 MG/ML 1 ML SYRINGE SQ NR (14:18)
== END ==
LOC: PROCWHC3 13:58
PROVIDERS: ATTEND Family Medicine
DX: M81.0 Age-related osteoporosis without current pathological fracture (principal)
CPT/HCPCS: 96372

== ENCOUNTER → 2024-06-19 | Outpatient (CLI) | payer MEDICARE ==
[2024-06-19 16:03] LABS: ALT 19 U/L (8-44); AST 22 U/L (13-35); Albumin 4.3 g/dL (3.8-4.9); Albumin/Globulin Ratio 1.43 Ratio (1.60-3.17); Alkaline Phosphatase 74 U/L (41-126); Blood Urea Nitrogen 14.7 mg/dL (9.0-27.0); Carbon Dioxide 26.2 mmol/L (21.6-31.8); Chloride 101 mmol/L (96-109); Chol/HDL Ratio 2.78 Ratio; Glucose 100 mg/dL (70-110); LDL Cholesterol,Calculated 91.7 mg/dL (0.0-131.0); Potassium 4.5 mmol/L (3.5-5.5); Sodium 136 mmol/L (135-145); Total Bilirubin 0.3 mg/dL (0.3-1.2); Total Protein 7.3 g/dL (6.2-8.2)
== END | disposition home or self-care (01) ==
LOC: LABWHC1 11:02
PROVIDERS: ATTEND Internal Medicine Interventional Cardiology
DX: E78.2 Mixed hyperlipidemia (principal)
CPT/HCPCS: 36415; 80053; 80061

== ENCOUNTER 2024-09-01 17:35 | Emergency (ER) | payer MEDICARE ==
--- NOTE | 2024-09-01 18:21 | ED ---
Female Urogenital HPI - General Source: patient, RN notes reviewed Mode of arrival: ambulatory Limitations: no limitations <RandolphBryan - Last Filed: 09/01/24 18:18> - General Source: patient, RN notes reviewed, old records reviewed Mode of arrival: ambulatory Limitations: no limitations - History of Present Illness MD Complaint: vaginal discharge, pelvic pain -: days(s) Location: suprapubic Severity: moderate Severity scale (1-10): 4 Consistency: constant (But improving) Improves with: none Worsens with: none Patient : No Associated Symptoms: vaginal discharge, abdominal pain - Related Data Sexually active: No <Pierre Howe - Last Filed: 09/01/24 22:45> - General Chief complaint: Urogenital Stated complaint: Urogenital Time Seen by Provider: 09/01/24 17:52 - History of Present Illness Initial comments: Quick note: This is a 73-year-old female with history of hysterectomy (2017) presenting with vaginal discharge since yesterday. Patient endorses waking with a "slime like" thick green vaginal discharge and off-white lumpy/"cheesy" discharge has improved slightly since yesterday. Patient denies associated abdominal pain or other concerning symptoms. Endorses transient dysuria that resolved prior to start of current symptoms. Patient had previously gone to [facility] urgent care where she underwent extensive testing and is currently being treated for presumed BV with Flagyl due to associated odor noted by YVONNE. PA also noted friable tissue on pelvic exam. Patient was advised ER to rule out possible abscess. Denies fever, chills, abdominal pain, vaginal bleeding, current urinary symptoms. (Bryan Dickson) This is a 73 female to ER for evaluation patient has history of hysterectomy history of diverticulitis coming in for abdominal pain today. No current pain patient does not originally present for an urgent care with significant vaginal discharge yesterday placed antibiotics and vaginal discharge has gotten much bet ter. No fevers (Pierre Howe) - Related Data Home Medications Medication Instructions Recorded Confirmed Atorvastatin [Lipitor] 20 mg PO HS 01/08/17 03/27/24 Levothyroxine Sodium [Synthroid] 100 mcg PO DAILY 02/09/18 03/27/24 lisinopriL [Zestril] 10 mg PO DAILY 02/09/18 03/27/24 Dorzolamide-Timol 2.23%/0.68% 1 drop BOTH EYES BID 05/12/21 03/27/24 [Cosopt] Celecoxib [CeleBREX] 1 cap PO DAILY 03/27/24 03/27/24 metHOTREXate sodium 5 tab PO WEEKLY 03/27/24 03/27/24 Allergies Allergy/AdvReac Type Severity Reaction Status Date / Time ticlopidine [From Ticlid] Allergy Rash/Hives Verified 09/01/24 17:46 Review of Systems ROS Other: All systems not noted in ROS Statement are negative. <RandolphBryan - Last Filed: 09/01/24 18:18> ROS Other: All systems not noted in ROS Statement are negative. <Pierre Howe - Last Filed: 09/01/24 22:45> ROS Statement: Those systems with pertinent positive or pertinent negative responses have been documented in the HPI. Past Medical History Past Medical History: Hypertension Additional Past Medical History / Comment(s): [place] cell carcinoma. History of Any Multi-Drug Resistant Organisms: None Reported Past Surgical History: Hysterectomy Additional Past Surgical History / Comment(s): removal of carcinoma, colonoscopy, bilateral cataract removal 2020 Past Anesthesia/Blood Transfusion Reactions: No Reported Reaction Past Psychological History: No Psychological Hx Reported Smoking Status: Former smoker Past Alcohol Use History: None Reported Past Drug Use History: None Reported <Bryan Dickson - Last Filed: 09/01/24 18:18> General Exam Limitations: no limitations <Bryan Dickson - Last Filed: 09/01/24 18:18> General appearance: alert, in no apparent distress Head exam: Present: atraumatic, normocephalic, normal inspection Eye exam: Present: normal appearance, PERRL, EOMI. Absent: scleral icterus, conjunctival injection, periorbital swelling ENT exam: Present: normal exam, mucous membranes moist Neck exam: Present: normal inspection. Absent: tenderness, meningismus, lymphadenopathy Respiratory exam: Present: normal lung sounds bilaterally. Absent: respiratory distress, wheezes, rales, rhonchi, stridor Cardiovascular Exam: Present: regular rate, normal rhythm, normal heart sounds. Absent: systolic murmur, diastolic murmur, rubs, gallop, clicks GI/Abdominal exam: Present: soft, normal bowel sounds. Absent: distended, tenderness, guarding, rebound, rigid Extremities exam: Present: normal inspection, full ROM, normal capillary refill. Absent: tenderness, pedal edema, joint swelling, calf tenderness Back exam: Present: normal inspection Neurological exam: Present: alert, oriented X3, CN II-XII intact Psychiatric exam: Present: normal affect, normal mood Skin exam: Present: warm, dry, intact, normal color. Absent: rash <Pierre Howe - Last Filed: 09/01/24 22:45> - General Exam Comments Initial Comments: Visual Physical Exam Vital signs reviewed General: Well-appearing, nontoxic, no acute distress. Head: Normocephalic, atraumatic Eyes: PERRLA, EOMI ENT: Airway patent Chest: Nonlabored breathing Skin: No visual rash, normal skin tone Neuro: Alert and oriented 3 Musculoskeletal: No gross abnormalities (Bryan Dickson) Course <Pierre Howe - Last Filed: 09/01/24 22:45> Vital Signs 09/01/24 09/01/24 09/01/24 17:43 18:49 22:21 Temperature 98.1 F 98 F Pulse Rate 84 80 74 Respiratory 20 18 18 Rate Blood Pressure 136/83 114/77 115/72 O2 Sat by Pulse 95 94 L 95 Oximetry - Reevaluation(s) Reevaluation #1: 09/01/24 22:44 Medical records reviewed (Pierre Howe) Reevaluation #2: 09/01/24 22:44 Patient has no significant symptoms here in the ER (Pierre Howe) Reevaluation #3: 09/01/24 22:44 Patient informed of results and questions answered (Pierre Howe) Reevaluation #4: Was pt. sent in by a medical professional or institution (, PA, TENNIS RACKET REPAIRER, urgent care, hospital, or retirement...) When possible be specific @ -no Did you speak to anyone other than the patient for history (EMS, parent, family, police, friend...)? What history was obtained from this source @ -no Did you review nursing and triage notes (agree or disagree)? Why? @ -agree Are old charts reviewed (outside hosp., previous admission, EMS record, old EKG, old radiological studies, urgent care reports/EKG's, retirement records)? Report findings @ -yes Differential Diagnosis (chest pain, altered mental status, abdominal pain women, abdominal pain men, vaginal bleeding, weakness, fever, dyspnea, syncope, headache, dizziness, GI bleed, back pain, seizure, CVA, palpatations, mental health, musculoskeletal)? @ -prior EKG interpreted by me (3pts min.). @ -yes X-rays interpreted by me (1pt min.). @ -yes negative for acute disease CT interpreted by me (1pt min.). @ -no U/S interpreted by me (1pt. min.). @ -no What testing was considered but not performed or refused? (CT, X-rays, U/S, labs)? Why? @ -none What meds were considered but not given or refused? Why? @ -none Did you discuss the management of the patient with other professionals (professionals i.e. , PA, TENNIS RACKET REPAIRER, lab, RT, psych nurse, social work nurse, compounding scaler, teacher, service officer, field nurse case manager)? Give summary @ -no Was smoking cessation discussed for >3mins.? @ -no Was critical care preformed (if so, how long)? @ -no Were there social determinants of health that impacted care today? How? (Homelessness, low income, unemployed, alcoholism, drug addiction, mendez sportation, low edu. Level, literacy, decrease access to med. care, [place] [facility], rehab)? @ -none Was there de-escalation of care discussed even if they declined (Discuss DNR or withdrawal of care, Hospice)? DNR status @ -no What co-morbidities impacted this encounter? (DM, HTN, Smoking, COPD, CAD, Cancer, CVA, ARF, Chemo, Hep., AIDS, mental health diagnosis, sleep apnea, morbid obesity)? @ -none Was patient admitted / discharged? Hospital course, mention meds given and route, prescriptions, significant lab abnormalities, going to OR and other pertinent info. @ - Undiagnosed new problem with uncertain prognosis? @ -no Drug Therapy requiring intensive monitoring for toxicity (Heparin, Nitro, In sulin, Cardizem)? @ -no Were any procedures done? @ -no Diagnosis/symptom? @ - Acute, or Chronic, or Acute on Chronic? @ -Acute Uncomplicated (without systemic symptoms) or Complicated (systemic symptoms)? @ -Complicated Side effects of treatment? @ -no Exacerbation, Progression, or Severe Exacerbation? @ -exacerbation Poses a threat to life or bodily function? How? (Chest pain, USA, SC, pneumonia, PE, COPD, DKA, ARF, appy, cholecystitis, CVA, Diverticulitis, Homicidal, Suicidal, threat to staff... and all critical care pts) @ -yes (Pierre Howe) Reevaluation #5: Differential Abdominal Pain Women: Appendicitis, Cholecystitis, diverticulosis, ischemic bowel, pancreatitis, hepatitis, UTI, gastroenteritis, AAA, incarcerated hernia, bowel obstruction, constipation, inflammatory bowel, hepatitis, peptic ulcer disease, splenic infarction, perforated viscus, vulvitis, ovarian torsion, PID, kidney stone, placenta abruption, this is not meant to be an all-inclusive list (Pierre Howe) Medical Decision Making <Bryan Dickson - Last Filed: 09/01/24 18:18> - Lab Data Result diagrams: 09/01/24 18:47 09/01/24 18:47 - Radiology Data Radiology results: report reviewed (CT abdomen pelvis is positive for possible colovaginal fistula), image reviewed <Pierre Howe - Last Filed: 09/01/24 22:45> - Medical Decision Making I completed the quick note portion of this chart signed ANTWAN Alcazar (Bryan Dickson) 73 female with severe vaginal discharge placed on antibiotics symptoms improved 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 but patient will continue antibiotics currently and follow-up as an outpatient (Pierre Howe) - Lab Data Lab Results 09/01/24 09/01/24 Range/Units 18:47 18:47 WBC 6.8 (3.8-10.6) k/uL RBC 4.42 (3.80-5.40) m/uL Hgb 12.9 (11.4-16.0) gm/dL Hct 41.5 (34.0-46.0) % MCV 93.9 (80.0-100.0) fL MCH 29.2 (25.0-35.0) pg MCHC 31.1 (31.0-37.0) g/dL RDW 13.8 (11.5-15.5) % Plt Count 321 (150-450) k/uL MPV 7.7 Neutrophils % 67 % Lymphocytes % 15 % Monocytes % 8 % Eosinophils % 8 % Basophils % 1 % Neutrophils # 4.6 (1.3-7.7) k/uL Lymphocytes # 1.0 (1.0-4.8) k/uL Monocytes # 0.6 (0-1.0) k/uL Eosinophils # 0.5 (0-0.7) k/uL Basophils # 0.0 (0-0.2) k/uL Sodium 137 (137-145) mmol/L Potassium 3.6 (3.5-5.1) mmol/L Chloride 99 (98-107) mmol/L Carbon Dioxide 30 (22-30) mmol/L Anion Gap 8 mmol/L BUN 20 H (7-17) mg/dL Creatinine 0.53 (0.52-1.04) mg/dL Est GFR (CKD-EPI)AfAm >90 (>60 ml/min/1.73 sqM) Est GFR (CKD-EPI)NonAf >90 (>60 ml/min/1.73 sqM) Glucose 108 H (74-99) mg/dL Calcium 9.2 (8.4-10.2) mg/dL Total Bilirubin 0.5 (0.2-1.3) mg/dL AST 25 (14-36) U/L ALT 21 (4-34) U/L Alkaline Phosphatase 74 (38-126) U/L Total Protein 7.3 (6.3-8.2) g/dL Albumin 4.1 (3.5-5.0) g/dL Disposition <Bryan Dickson - Last Filed: 09/01/24 18:18> Is patient prescribed a controlled substance at d/c from ED?: No Time of Disposition: 21:45 <Pierre Howe - Last Filed: 09/01/24 22:45> Clinical Impression: Vaginitis, Abdominal pain Narrative: 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
[2024-09-01 18:49] VITALS: RESP 18
[2024-09-01 19:00] LABS: Basophils % (A) 1 %; Eosinophils # (A) 0.5 k/uL (0-0.7); Eosinophils % (A) 8 %; HCT 41.5 % (34.0-46.0); HGB 12.9 gm/dL (11.4-16.0); Lymphocytes % (A) 15 %; MCH 29.2 pg (25.0-35.0); MCHC 31.1 g/dL (31.0-37.0); MCV 93.9 fL (80.0-100.0); Mean Platelet Volume 7.7; Monocytes # (A) 0.6 k/uL (0-1.0); Monocytes % (A) 8 %; Neutrophils # (A) 4.6 k/uL (1.3-7.7); Neutrophils % (A) 67 %; Platelet Count 321 k/uL (150-450); RBC 4.42 m/uL (3.80-5.40); RDW 13.8 % (11.5-15.5); WBC 6.8 k/uL (3.8-10.6)
[2024-09-01 19:11] LABS: ALT 21 U/L (4-34); AST 25 U/L (14-36); African American GFR (CKD) >90 (>60 ml/min/1.73 sqM); Albumin 4.1 g/dL (3.5-5.0); Alkaline Phosphatase 74 U/L (38-126); Anion Gap 8 mmol/L; Blood Urea Nitrogen 20 mg/dL (7-17); Calcium 9.2 mg/dL (8.4-10.2); Carbon Dioxide 30 mmol/L (22-30); Chloride 99 mmol/L (98-107); Glucose 108 mg/dL (74-99); Non-African American GFR(CKD) >90 (>60 ml/min/1.73 sqM); Potassium 3.6 mmol/L (3.5-5.1); Sodium 137 mmol/L (137-145); Total Bilirubin 0.5 mg/dL (0.2-1.3); Total Protein 7.3 g/dL (6.3-8.2)
--- NOTE | 2024-09-01 20:41 | CT ---
EXAMINATION TYPE: CT abdomen pelvis w con DATE OF EXAM: 09/01/2024 7:57 PM COMPARISON: CT abdomen pelvis most recent from 12/24/2019 CLINICAL INDICATION: Female, 73 years old with history of Abnormal vaginal discharge; Abnormal vagina l discharge TECHNIQUE: Axial CT abdomen pelvis w con;Sagittal and coronal reformats were created on a separate w orkstation. Contrast used:100 ml mL of Isovue 300 with IV Contrast, (none if empty) Oral contrast used: without Oral Contrast (none if empty) CT DLP: 990 mGycm, Automated exposure control for dose reduction was used. FINDINGS: LOWER CHEST: Unremarkable ABDOMEN LIVER: Unremarkable GALLBLADDER AND BILE DUCTS: Unremarkable. PANCREAS: Unremarkable. SPLEEN: Unremarkable. ADRENAL GLANDS: Unremarkable. KIDNEYS AND URETERS: No evidence of hydronephrosis. Nonobstructing calculi bilaterally measuring up t o 4 mm.. The ureters are unremarkable. PELVIS BLADDER: No evidence for wall thickening or mass given limitations of exam. REPRODUCTIVE: Somewhat thickened degenerative miller extending towards the colonr lozenge up to 9 mm. ABDOMEN & PELVIS STOMACH AND BOWEL: No evidence of bowel obstruction. Evidence of sequela of diverticulitis with color ectal vaginal fistula series 203 image 75. No organizing fluid collection. No masses definitively vis ualized. PERITONEUM/RETROPERITONEUM: No evidence of pneumoperitoneum or free fluid. VASCULATURE: Moderate atherosclerotic calcifications are present throughout the abdominal aorta and i ts branches. No evidence of aortic aneurysm. MUSCULOSKELETAL: No acute osseous abnormalities. Moderate disc degeneration changes are present throu ghout the thoracolumbar spine. T12 compression deformity with 50% height loss. LYMPH NODES: No gross evidence for lymphadenopathy. 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 No organizing fluid collections. Correlate for history of diverticulitis versus vagina malignancy excluded. [facility], , 09/01/2024 8:38 PM
[2024-09-01 22:22] VITALS: BP 115/72; PULSE 74; TEMP 98
== END 2024-09-01 22:21 | disposition home or self-care (01) ==
LOC: EC 17:35
DX: N76.0 Acute vaginitis (principal); Z88.8 Allergy status to other drugs, medicaments and biological substances; Z87.891 Personal history of nicotine dependence
CPT/HCPCS: 36415; 80053; 85025; 74177; 99284; Q9967